=== PATIENT | female | born 1990 | race Caucasian/White ===

== ENCOUNTER 2024-06-03 07:57 | Inpatient (IN) ==
[2024-06-03] MEDS ORDERED: ACETAMINOPHEN 500 MG TAB PO PRN (08:39)
[2024-06-03] MEDS ORDERED: LIDOCAINE 1% LOCAL 20 ML VIAL INFIL PRN (08:39)
[2024-06-03] MEDS ORDERED: OXYTOCIN 30 UNITS/NSS 30 UNITS/500 ML BAG IV PRN (08:39)
[2024-06-03] MEDS ORDERED: CALCIUM CARBONATE 500 MG CHEWABLE TAB PO PRN (08:39)
--- NOTE | 2024-06-03 08:41 | History & Physical Report ---
Date of Service June 03, 2024 Assessment & Plan (1) Supervision of elderly primigravida: (2) Post-dates : Plan Sulma is a 34-year-old G3, P1 currently at 41 weeks 2 days gestational age presents for induction of labor for late term 1. Fetus: Category 1 tracing 2. Labor: Cervical ripening Soria placed. Will start oxytocin per regular protocol and will plan for rupture of membranes post Soria. 3. Vitals within normal limits 4. GBS negative Admission and Anticipated Discharge Date Admission Date: June 03, 2024 History of Present Illness Primary Care Provider: [facility] Sulma is a 34-year-old currently at 41 weeks 2 days gestational age presents for induction of labor for late term . complicated by advanced maternal age but is otherwise been normal. OB Labs: Blood Type A Positive 10/16/23 Antibody Screen NEGATIVE 10/16/23 Hgb 11.8 g/dl (12.0-16.0) L 03/04/24 Hct 35.3 % (37.0-47.0) L 03/04/24 MCV 85.6 fL (80.0-100.0) 10/16/23 Plt Count 260 K/uL (130-400) 10/16/23 Rubella IgG Antibody Immune (Immune) 10/16/23 RPR Nonreactive (Nonreactive) 10/16/23 Treponema pallidum Ab Negative (Negative) 03/04/24 Hep Bs Antigen NON-REACTIVE (NON-REACTIVE) 10/16/23 Hepatitis C Ab (EIA) NON-REACTIVE (NON-REACTIVE) 10/16/23 HIV (1&2) Ag & Ab Conf NON-REACTIVE (NON-REACTIVE) 10/16/23 Glucose 1 Hr 50 gm 99 mg/dl (70-130) 03/04/24 OB Optional Labs: Chlamydia trachomatis RNA Not Detected (NotDetected) 10/16/23 Neisseria gonorrhoeae RNA Not Detected (NotDetected) 10/16/23 Labs Reviewed: 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, FOB neg declines afp--akh Allergies Allergy/AdvReac Type Severity Reaction Status Date / Time No Known Allergies Allergy Verified 06/03/24 08:57 Home Medications Medication Instructions Recorded Confirmed Type aspirin 81 mg chewable tablet 81 mg PO DAILY 06/03/24 06/03/24 History vits no.124-ferrous fum 1 tab PO DAILY 06/03/24 06/03/24 History 27 mg iron-folic acid 800 mcg tablet ( Vitamin) Patient History Surgical History S/P wisdom tooth extraction S/P breast biopsy Family History (Updated 10/09/23 @ 09:50 by Yola Alfaro) Grandfather (Paternal) Diabetes Social History (Updated 10/09/23 @ 09:50 by Yola Alfaro) Smoking Status: Former smoker Do You Dip or Chew Tobacco: No; Hx Alcohol Use: No Hx Substance Use: No Beliefs That Will Affect Care: None marital status: marital status details: Dylan (34) [phone] Current Living Situation: Spouse Current Living Situation Comment: lives with spouse, 1 dog. current occupational status: employed current occupation: Grad student Other Information That Helps Us Care for You: No Feels Safe at Home: Yes Safety Concerns: Feels Safe At This Time Assistive Devices: None Physical Exam Genitourinary: normal external appearance Manual OB Exam: + cervical dilation 1 cm, + cervical effacement 50% and + station high OB Exam Monitor Tracing: + external FHT monitor used, + external uterine monitor used, + category I and + normal FHT variability; no early decelerations present, no late decelerations present and no variable decelerations Results & Data Vital Signs (Past 12 Hours) Vital Signs Temp Pulse Resp BP 06/03/24 08:11 85 110/65 06/03/24 08:06 36.8 C 20 Coding Level of Care Code None Diagnoses Encounter for supervision of primigravida of advanced maternal age in third trimester O09.513 Trimester: third trimester Post-term , 40-42 weeks of gestation O48.0 Post-term type: 40-42 weeks gestation (1) Supervision of elderly primigravida Trimester: third trimester Qualified Code(s): O09.513 - Supervision of elderly primigravida, third trimester (2) Post-dates Post-term type: 40-42 weeks gestation Qualified Code(s): O48.0 - Post-term
[2024-06-03 09:07] LABS: Hematocrit (blood only) 35.5 % (37.0-47.0); Hemoglobin 11.9 g/dl (12.0-16.0); Mean Corpuscular Hgb Conc 33.5 g/dL (32.0-36.0); Mean Corpuscular Volume 86.6 fL (80.0-100.0); Mean Platelet Volume 10.9 fL (9.4-12.4); Platelet Count 182 K/uL (130-400); RDW Coefficient of Variation 14.3 % (11.5-14.5); RDW Standard Deviation 45.1 fL (36.4-46.3); White Blood Count 10.49 K/ul (4.8-10.8)
[2024-06-03] MEDS: LACTATED RINGER'S 1,000 ML IV SCH (09:36)
[2024-06-03] MEDS: OXYTOCIN 30 UNITS/NSS 30 UNITS/500 ML BAG IV PRN (09:40)
[2024-06-03] MEDS ORDERED: ePHEDrine sulfate 50 MG/ML AMP ONE (17:22)
--- NOTE | 2024-06-03 17:40 | Anesthesiology Consultation ---
Date of Service June 03, 2024 Assessment & Plan ASA ASA2 Proposed Anesthesia Anesthesia Type: Labor Epidural Risk / Benefits Reviewed With: PT / POA / Parent / Guardian, Accepts Plan and Informed Consent Obtained History Height/Weight Height: 5 ft 11 in Weight: 113.398 kg Allergies Allergy/AdvReac Type Severity Reaction Status Date / Time No Known Allergies Allergy Verified 06/03/24 08:57 Medications Home Medications Medication Instructions Recorded Confirmed Last Taken aspirin 81 mg chewable tablet 81 mg PO DAILY 06/03/24 06/03/24 Unknown vits no.124-ferrous fum 1 tab PO DAILY 06/03/24 06/03/24 Unknown 27 mg iron-folic acid 800 mcg tablet ( Vitamin) Active Medications Generic Name Dose Route Start Last Admin Trade Name Pamela PRN Reason Stop Dose Admin Lactated Ringer's 1,000 mls @ 125 mls/hr 06/03/24 09:00 06/03/24 17:55 Lr IV 06/04/24 08:59 Infused .Q8H MIGUELANGEL Infusion Oxytocin 30 units in 500 mls @ 0 mls/hr 06/03/24 08:41 06/03/24 17:13 Pitocin 30 Units/Nss IV 06/05/24 08:40 0 units/hr .Q0M PRN 0 mls/hr Labor Induction/Augmentation Titration Protocol 0 UNITS/HR Exercise / Class Metabolic Activity II 4-5 Yardwork/Stairs/Walk up hill Past Family History Family History Grandfather (Paternal) Diabetes Past Surgical History Surgical History S/P wisdom tooth extraction S/P breast biopsy Past Anesthesia History No Hx of Anesthesia Complications and No Family Hx of Anesthesia Complications History of PONV No Hx of PONV and No Hx of Motion Sickness Social History Smoking Status: Former smoker Do You Dip or Chew Tobacco: No Hx Alcohol Use: No Hx Substance Use: No substance use type: does not use Review of Systems denies fever/cough/ colds/ chest pain/ SOB/ YARITZA denies YARITZA Physical Exam Vital Signs Last Vital Signs Temp 36.7 C 06/03/24 18:06 Pulse 83 06/03/24 18:29 Resp 18 06/03/24 18:06 BP 105/54 L 06/03/24 18:21 Pulse Ox 96 06/03/24 18:29 ENMT Mouth: no TMJ abnormality and no dentition abnormality Thyromental Distance: > or= 3.5 Finger Breadths Mallampati Class: II Neck neck extension not limited Respiratory normal respiratory effort; no respiratory distress Auscultation: lungs clear to auscultation bilaterally Cardiovascular Rate/Rhythm: regular rate and regular rhythm Neurologic moves all extremities Psychiatric Orientation: alert and oriented x 3 Testing Laboratory Results 06/03/24 08:46
[2024-06-03] MEDS ORDERED: ePHEDrine sulfate 50 MG/ML AMP IV PRN (17:41)
[2024-06-03] MEDS ORDERED: BUPIVACAINE 0.25% PF 30 ML VIAL EPI PRN (17:41)
[2024-06-03] MEDS ORDERED: NALOXONE HCL 1 MG in SODIUM CHLORIDE 0.9% 1,000 ML IV PRN (17:41)
[2024-06-03] MEDS ORDERED: ROPIVACAINE 0.5% PF 5 MG/ML 20 ML VIAL EPI PRN (17:41)
[2024-06-03] MEDS ORDERED: fentaNYL citrate PF 100 MCG/2 ML VIAL EPI PRN (17:41)
[2024-06-03] MEDS ORDERED: LIDOCAINE 2% MPF LOCAL 5 ML VIAL EPI PRN (17:41)
[2024-06-03] MEDS ORDERED: NALOXONE HCL 0.4 MG/1 ML VIAL/CARP IV PRN (17:41)
[2024-06-03] MEDS ORDERED: NALBUPHINE HCL INJ 10 MG/ML AMP IV PRN (17:41)
[2024-06-03] MEDS ORDERED: SODIUM CHLORIDE 0.9% PF INJ 10 ML VIAL EPI PRN (17:41)
[2024-06-03] MEDS ORDERED: diphenhydrAMINE 50 MG/ML VIAL IV PRN (17:41)
[2024-06-03] MEDS ORDERED: ONDANSETRON INJ 2 MG/ML 2 ML VIAL IV PRN (17:41)
[2024-06-03] MEDS: fentANYL 2 MCG/ML BUPIVacaine 0.125%-NSS 100ML BAG ONE (18:09)
[2024-06-03] MEDS: fentaNYL citrate PF 100 MCG/2 ML VIAL ONE (18:16)
[2024-06-03] MEDS: LIDOCAINE 2%/EPINEPHRINE 1:200,000 20 ML PF ONE (18:17)
[2024-06-03] MEDS: BUPIVACAINE 0.25% PF 30 ML VIAL ONE (18:17)
[2024-06-03] MEDS: SODIUM CHLORIDE 0.9% PF INJ 10 ML VIAL ONE (19:04)
[2024-06-03] MEDS: BUPIVACAINE 0.25% PF 30 ML VIAL EPI STA (19:06)
[2024-06-03] MEDS: LIDOCAINE 2%/EPINEPHRINE 1:200,000 20 ML PF EPI STA (19:06)
[2024-06-03] MEDS: SODIUM CHLORIDE 0.9% PF INJ 10 ML VIAL EPI STA (19:06)
[2024-06-03] MEDS: fentaNYL citrate PF 100 MCG/2 ML VIAL EPI STA (19:06)
[2024-06-04] MEDS: fentANYL 2 MCG/ML BUPIVacaine 0.125%-NSS 100ML BAG EPI PRN (00:56)
[2024-06-04] MEDS ORDERED: OXYTOCIN 30 UNITS/NSS 30 UNITS/500 ML BAG IV PRN (07:14)
[2024-06-04] MEDS ORDERED: HYDROCORTISONE ACETATE 25 MG SUPP PR PRN (07:14)
[2024-06-04] MEDS ORDERED: ACETAMINOPHEN 325 MG TAB PO PRN (07:14)
[2024-06-04] MEDS ORDERED: bisacodyL 10 MG SUPP PR PRN (07:14)
--- NOTE | 2024-06-04 07:14 | Delivery Summary ---
Vaginal Delivery Summary Date of Service June 04, 2024 Vaginal Delivery Summary VAVD and 2nd Degree LAC Patient pushed for approximately 3 hours at which time the was noted to be at +2 station at rest and +3 station with pushing. I discussed option for a vacuum-assisted delivery due to prolonged pushing and maternal exhaustion. I discussed the risks of a vacuum delivery including scalp lacerations, hematomas, risk of shoulder dystocia and perineal lacerations. Patient verbally consented to the vacuum and all questions related to the vacuum were answered to the patient's satisfaction. The vacuum was applied 2 cm anterior to the posterior fontanelle. It was insufflated to within the green zone and traction was applied over 2 pushes which brought the head to full . Care was taken to not apply more tension than recommended based on the indicator on the Kiwi. The vacuum was then removed and at the next contraction patient delivered the head. Delivery of the anterior shoulder was initiated but a shoulder cannot be distinctly felt above the pubic bone. As the patient to push and then shoulder was still not distinctly noted. I felt up anteriorly around the pubic bone and the anterior shoulder was not distinctly felt. After another attempt of pushing it was discovered that the arm was compound with the hand wrapped around the baby's head pulling the shoulder anteriorly. The hand was grasped and delivered and remainder of shoulders and body quickly followed. placed on maternal abdomen and cord was double clamped and cut. There was some spontaneous cry's and good tone. was taken to the nursery staff for evaluation with Apgars of 6 and 8 at 1 and 5 minutes respectively. Attention was turned deliver the placenta was delivered intact three-vessel cord. Uterine massage was initiated and bleeding was noted to be within expectation. Inspection of perineum vagina and cervix noted a right labial laceration was repaired with 3-0 Vicryl continuous running stitch. There is also noted to be second-degree perineal laceration which was repaired with 3-0 Vicryl traditional crown stitch. Needle sponge and instrument counts were correct at the completion of the case. Both mother and stable in the po st delivery timeframe. No complications noted and blood loss per QBL [facility] Vaginal Delivery Charge Delivery Type Details: VAVD and 2nd Degree LAC
--- NOTE | 2024-06-04 07:40 | Anesthesia Procedure Note ---
Date of Service June 04, 2024 Anesthesia Post Epidural Note Vital Signs Vital Signs: Temp Pulse Resp BP Pulse Ox 37.0 C 97 H 18 132/63 98 06/04/24 05:30 06/04/24 07:25 06/04/24 05:30 06/04/24 07:25 06/04/24 07:01 Pain Intensity Lower Abdomen: Pain Intensity: 6 Notes Mental Status: alert / awake / arousable and participated in evaluation Nausea / Vomiting: adequately controlled Pain: adequately controlled Airway Patency, RR, SpO2: stable & adequate BP & HR: stable & adequate Hydration State: stable & adequate Neuraxial Anesthesia: was administered and sensory block is resolving Anesthetic Complications: no major complications apparent Epidural: Removed without complications and With tip intact
[2024-06-04] MEDS: FERROUS SULFATE 325 MG TAB PO SCH (09:59)
[2024-06-04] MEDS: PRENATAL VITAMIN 1 TAB PO SCH (09:59)
[2024-06-04] MEDS: BENZOCAINE 20% SPRY 85 APPLN/85 GM CAN EXT PRN (09:59)
[2024-06-04] MEDS: DOCUSATE SODIUM 100 MG CAP PO SCH (09:59)
[2024-06-04] MEDS: IBUPROFEN 600 MG TAB PO PRN (16:40)
[2024-06-05 03:46] VITALS: O2SAT 99
[2024-06-05 06:37] LABS: Hematocrit (blood only) 31.5 % (37.0-47.0); Hemoglobin 10.3 g/dl (12.0-16.0)
--- NOTE | 2024-06-05 08:28 | Obstetrical Progress Note ---
Date of Service June 05, 2024 Assessment & Plan (1) Encounter for care and examination after delivery: 34 yo PP1 from VAVD, doing well -Meeting all pp milestones -A+/rubella immune/ -f/u 6 weeks for appt, desires dc Subjective Ambulation: ambulating normally Voiding: no voiding problems Passing Gas:: Yes Diet Tolerance:: regular diet Lochia:: Small Feeding Type:: breast feeding Pain well managed with medication Review of Systems Denies fevers, chills, n/v, HENRY, CP, SOB Physical Exam Constitutional WD/WN, vitals as above no acute distress Respiratory normal respiratory effort, lungs clear to auscultation Cardiovascular RRR, no murmur, no edema Gastrointestinal (Abdomen) Percussion/Palpation: abdomen soft; abdomen nontender fundus firm at umbilicus and NT Musculoskeletal BLE symmetric, nonerythematous, nontender Results & Data Vital Signs (Past 12 Hours) Vital Signs Temp Pulse Pulse Resp BP Pulse Ox O2 Del Method 06/05/24 03:51 81 104/69 06/05/24 03:44 80 83/48 L 06/05/24 03:43 97.9 F 80 16 85/47 L 99 Room Air 06/05/24 00:07 97.9 F 84 16 104/68 06/04/24 21:34 97.7 F 83 16 103/63 97 Room Air
[2024-06-05 09:32] VITALS: RESP 18
[2024-06-05] MEDS: DIPHTHER/TETAN/PERTUS Vaccine (Tdap, Adol/Adult) 0.5mL IM ONE (14:59)
[2024-06-05 17:07] VITALS: BP 109/73; PULSE 90; TEMP 98.6
[2024-06-05] MEDS ORDERED: bisacodyL 5 MG TABEC PO SCH (20:00)
== END 2024-06-05 18:20 | disposition home or self-care (01) | DRG 807 ==
LOC: 4S1 07:57 → 4E2 06-04 10:03
DX: Z37.0 Single live birth; O70.1 Second degree perineal laceration during delivery; Z3A.41 41 weeks gestation of pregnancy; O48.0 Post-term pregnancy

== ENCOUNTER 2025-07-25 09:52 | Inpatient (IN) ==
--- NOTE | 2025-07-25 09:58 | Emergency Department Note ---
Impression & Plan Closed left tibial fracture, Closed fracture of left fibula ED Provider Note CHIEF COMPLAINT: Left ankle injury HISTORY OF PRESENTING ILLNESS: This 35-year-old female patient presents to the emergency department via ambulance for evaluation of a left ankle injury. The patient states that she stepped on black ice and her left ankle rolled and she felt 3 pops as she went down. She did not hit her head. She denies loss of consciousness and she is not on blood thinners. The patient denies any other injury other than the left lower leg and foot. No previous fractures to this ankle or foot. She denies neck or back pain. Denies chest pain, shortness of breath, abdominal pain, nausea, or vomiting. She had eggs, toast, and coffee around 7:30 am. She received 200 mcg of Fentanyl IV in the ambulance for her pain. REVIEW OF SYSTEMS: See HPI for pertinent positives and pertinent negatives. ALLERGIES: Cipro, bees MEDICATIONS: None PAST MEDICAL HISTORY: Denies pertinent past medical or pertinent past surgical history PHYSICAL EXAM: VITALS: Vitals are noted on the nurse's note and reviewed by myself. GENERAL: No acute distress, non-diaphoretic. SKIN: The skin was without obvious lacerations or abrasions. Capillary reflex less than 2 seconds. HEAD: Normocephalic. No scalp tenderness or step-offs felt. EYES: Pupils equal round and reactive to light and accommodation. Conjunctivae without injection, sclerae without icterus. Extraocular movements intact. No nystagmus. NECK: Supple without nuchal rigidity. Cervical spine is nontender. Full range of motion of the neck without tenderness. HEART: Regular rate and rhythm without murmurs gallops or rubs. LUNGS: Clear to auscultation bilaterally without wheezes, rales or rhonchi. No retractions or accessory muscle use. CHEST: No chest wall tenderness. ABDOMEN: Positive bowel sounds x 4. Normal tympanic percussion. Soft, nontender, without masses or organomegaly. No guarding or rebound tenderness. MUSCULOSKELETAL: No tenderness of the thoracic or lumbar spine. The patient has an obvious deformity of the distal aspect of the left tib-fib, but it does not appear to involve the ankle joint on exam. The patient is maximally tender to palpation in this area. She is also mildly tender to palpation over the lateral and medial malleolus of the left ankle and diffusely over the left foot. No tenderness to palpation of the left knee, femur, or hip. She still has normal sensation to light and sharp touch of the left lower extremity. Dorsalis pedis and posterior tibial pulses 2+. Full range of motion without tenderness to palpation in all remaining extremities. Peripheral pulses 2+. NEURO: Patient was alert and oriented to person place and time. Normal mental status exam. Normal sensation to light and sharp touch. No focal neurological deficits. DIFFERENTIAL DIAGNOSIS: Differential diagnosis includes fracture, subluxation, dislocation, contusion, ligamentous injury, neurovascular, compartment syndrome, rhabdomyolysis, as well as other pathologies. ED COURSE AND MEDICAL DECISION MAKING: MEDICATIONS GIVEN: The patient had received 200 mcg of fentanyl IV by EMS prior to arrival. She was given 1 L normal saline solution bolus. She was given morphine 4 mg IV, Zofran 4 mg IV, and Dilaudid 0.25 mg IV x 2 for additional pain control. Maintenance fluids were started at 125 mL an hour. INTERPRETATION OF LABS: I interpreted the labs with full lab results as below in the lab section of this note. Laboratory results pertinent to the emergent complaint are discussed in the MDM section below. The patient was advised to follow up with their PCP and/or specialist(s) for further outpatient monitoring and management of any abnormal results. INTERPRETATION OF IMAGING: Imaging studies were interpreted by myself and read by radiology as per the imaging section of this note. The patient was advised to follow up with their PCP and/or specialist(s) for further outpatient management of any non-emergent abnormal findings. CONSULTATIONS: Dr. Sandy of orthopedics SPLINTING: The patient was placed in a long-leg posterior and stirrup splint under my direction. Neurovascular status was rechecked and intact. MDM SUMMARY: I examined the patient. The patient slipped on black ice rolling her left ankle. She heard 3 pops that she went down. Now having significant pain in the left lower leg and foot. She did not hit her head and there was no loss of consciousness and she is not on blood thinners. She denies any other injury or pain and no other tenderness to palpation on exam. The patient last ate and drank at 7:30 AM. An IV lock was already placed by EMS and she had been given fentanyl 200 mcg IV by EMS prior to arrival. White blood cell count elevated at 15.33 which is likely secondary to pain/stress response. Hemoglobin normal at 12.1. Platelet count normal at 239. Calcium low at 7.9 and chloride 110, but BMP otherwise without concerning abnormalities. Serum negative. X-rays of the left tib-fib show an acute oblique mildly comminuted mildly displaced fracture at the distal shaft of the tibia and fibula. X-rays of the left foot show no acute fracture or dislocation. I spoke with Dr. Sandy of orthopedics who will plan to take the patient to the OR for definitive treatment of her fractures. He requested the patient be placed in a posterior long-leg splint prior to having a CT scan of the left tib- fib performed for better visualization for surgical plan. The patient was placed in the posterior long-leg and stirrup splint. CT scan of the left tib-fib without contrast showed better visualization of the acute distal tibia and fibular shaft fractures with no intra-articular extension. Dr. Sandy took the patient to the OR for definitive treatment of the fractures. Please refer to his dictation for further details. The patient's care was transferred in stable condition. DIAGNOSIS: Closed fracture of the left tibia Closed fracture of the left fibula Past Med/Surg History Problem List (Updated 07/25/25 @ 15:[address] PA-C) Closed fracture of left fibula (Acute) Closed left tibial fracture (Acute) Encounter for care and examination after delivery Post-dates Mass of right breast benign fibroadenoma Encounter for anatomic survey Supervision of elderly primigravida Medical History (Updated 07/25/25 @ 15:[address] PA-C) Encounter for pre-operative examination Fracture of tibial shaft, left, closed Surgical History S/P wisdom tooth extraction S/P breast biopsy Family History Grandfather (Paternal) Diabetes Grandmother (Paternal) Breast cancer Mother No problems noted. Social History Smoking Status: Former smoker Tobacco Type: Declines Age Started Using Tobacco: 16; Age Quit Using Tobacco: 33; Do You Dip or Chew Tobacco: No; Hx Alcohol Use: No Hx Substance Use: No Preferred Language: Zimbabwean Beliefs That Will Affect Care: None marital status: marital status details: Dylan (34) [phone] Current Living Situation: Spouse Current Living Situation Comment: lives with spouse, 1 dog. current occupational status: employed current occupation: Grad student How many Children do You have: 1 Feels Safe at Home: Yes Childhood Exposure to Second-Hand Smoke: Yes Diet: regular caffeine: Yes Dental Care, Regularly: Yes Physical Activity Frequency: Daily Seatbelt Use: always Sunscreen Use: Yes Assistive Devices: None Allergies Allergies Allergy/AdvReac Type Severity Reaction Status Date / Time bee venom protein (honey bee) Allergy Verified 03/21/25 08:54 ciprofloxacin [From Cipro] AdvReac Hives Verified 03/21/25 08:54 Results & Data (ED) Vital Signs Vital Signs - 24 hr 07/25/25 09:59 07/25/25 09:59 07/25/25 11:55 Temperature 36.9 C 36.9 C Temperature Source Oral Oral Pulse Rate 103 H Pulse Rate [Left Finger] Pulse Rate [Right Finger] 103 H 92 H Pulse Rhythm [Left Finger] Pulse Rhythm [Right Finger] Regular Pulse Strength [Left Finger] Pulse Strength [Right Finger] Normal Respiratory Rate 17 17 17 Respiratory Effort / Characteristics Non-Labored Spontaneous Non-Labored Spontaneous Non-Labored Spontaneous Respiratory Depth Normal Normal Normal Respiratory Pattern Regular Blood Pressure 121/87 Blood Pressure [Right Arm] 121/87 130/87 Blood Pressure Mean 98 Blood Pressure Mean [Right Arm] 98 101 Blood Pressure Position Sitting Blood Pressure Position [Right Arm] Sitting Sitting Pulse Oximetry 99 99 92 Oxygen Delivery Method Room Air Room Air Room Air Sepsis Recent Fever Within 48 Hours No Sepsis New/Unexplained Change in Mental Status N/A Sepsis Action Taken by Nursing No Action Required 07/25/25 13:55 07/25/25 14:55 07/25/25 15:04 Temperature 37.1 C Temperature Source Oral Pulse Rate 76 Pulse Rate [Left Finger] 82 Pulse Rate [Right Finger] 79 Pulse Rhythm [Left Finger] Regular Pulse Rhythm [Right Finger] Regular Pulse Strength [Left Finger] Normal Pulse Strength [Right Finger] Normal Respiratory Rate 17 17 18 Respiratory Effort / Characteristics Non-Labored Spontaneous Non-Labored Spontaneous Respiratory Depth Normal Normal Respiratory Pattern Regular Blood Pressure 120/90 Blood Pressure [Right Arm] 125/86 123/80 Blood Pressure Mean Blood Pressure Mean [Right Arm] 99 94 Blood Pressure Position Blood Pressure Position [Right Arm] Semi-fowlers Lying Pulse Oximetry 98 96 97 Oxygen Delivery Method Room Air Room Air Room Air Sepsis Recent Fever Within 48 Hours Sepsis New/Unexplained Change in Mental Status Sepsis Action Taken by Nursing Laboratory Data 07/25/25 12:14 07/25/25 12:14 Lab Results 07/25/25 07/25/25 Range/Units 12:14 14:25 WBC 15.33 H (4.8-10.8) K/ul RBC 4.10 L (4.20-5.40) M/uL Hgb 12.1 (12.0-16.0) g/dL Hct 35.7 L (37.0-47.0) % MCV 87.1 (80.0-100.0) fL MCH 29.5 (25.0-34.0) pg MCHC 33.9 (32.0-36.0) g/dL RDW Std Deviation 40.7 (36.4-46.3) fL RDW Coeff of Jaleel 12.7 (11.5-14.5) % Plt Count 239 (130-400) K/uL MPV 10.7 (9.4-12.4) fL Immature Gran % (Auto) 0.3 % Neut % (Auto) 87.3 % Lymph % (Auto) 7.8 % [place] % (Auto) 3.8 % Eos % (Auto) 0.5 % Baso % (Auto) 0.3 % Neut # (Auto) 13.38 H (1.40-6.50) K/uL Lymph # (Auto) 1.19 L (1.20-3.40) K/uL [place] # (Auto) 0.59 (0.11-0.59) K/uL Eos # (Auto) 0.07 (0.00-0.50) K/uL Baso # (Auto) 0.05 (0.00-0.20) K/uL Immature Gran # (Auto) 0.05 (0.01-0.20) K/uL Sodium 138 (136-145) mmol/L Potassium 3.7 (3.5-5.1) mmol/L Chloride 110 H (98-107) mmol/L Carbon Dioxide 23 (21-32) mmol/L Anion Gap 5 (3-11) BUN 19 (6-23) mg/dl Creatinine 0.57 L (0.6-1.2) mg/dl Est Cr Clr Drug Dosing 173.1 ml/min eGFR 119.96 BUN/Creatinine Ratio 33.3 H (10-20) Glucose 98 (70-99(Fasting)) mg/dl Calcium 7.9 L (8.6-10.3) mg/dl HCG, Qual Negative (Negative) Administered Medications Discontinued Medications Hydromorphone HCl (Hydromorphone Inj 0.5 Mg/0.5 Ml Syr) 0.25 mg IV NOW STA Stop: 07/25/25 11:58 Last Admin: 07/25/25 12:45 Dose: 0.25 mg Documented By: JOHN PAUL Hydromorphone HCl (Hydromorphone Inj 0.5 Mg/0.5 Ml Syr) 0.25 mg IV NOW STA Stop: 07/25/25 13:47 Last Admin: 07/25/25 13:47 Dose: 0.25 mg Documented By: ARIAN Sodium Chloride (Nss) 1,000 mls @ 999 mls/hr IV .Q1H1M ONE Stop: 07/25/25 11:01 Last Admin: 07/25/25 10:18 Dose: 999 mls/hr Documented By: JOHN PAUL Sodium Chloride (Nss) 500 mls @ 125 mls/hr IV .Q4H MIGUELANGEL Stop: 07/25/25 17:14 Last Admin: 07/25/25 13:38 Dose: 125 mls/hr Documented By: ARIAN Cefazolin Sodium (Ancef 2000mg) 2,000 mg in 15 mls @ 3.75 mls/min IV PREOP ONE; Protocol Stop: 07/25/25 15:15 Last Admin: 07/25/25 15:28 Dose: 3.75 mls/min Documented By: [id number] Morphine Sulfate (Morphine Sulfate 4 Mg/Ml 1 Ml Carp\Vial) 4 mg IV NOW STA Stop: 07/25/25 10:56 Last Admin: 07/25/25 11:05 Dose: 4 mg Documented By: JOHN PAUL Ondansetron HCl (Ondansetron Inj 2 Mg/Ml 2 Ml Vial) 4 mg IV NOW STA Stop: 07/25/25 10:56 Last Admin: 07/25/25 11:05 Dose: 4 mg Documented By: AMS Imaging Data Radiologist's Impression: Foot X-Ray 07/25/25 10:01 XR foot LT 2V CLINICAL HISTORY: injury COMPARISON: None FINDINGS: No fracture or dislocation seen of the left foot. IMPRESSION: No fracture seen of the left foot. ACT 112: Negative or not required by law. Electronically signed by: Taye Prince M.D. 07/25/2025 11:40 AM Tibia/Fibula X-Ray 07/25/25 10:01 XR tibia fibula LT 2V CLINICAL HISTORY: injury COMPARISON: None FINDINGS: There are acute oblique mildly comminuted mildly displaced fractures at the distal shafts of the tibia and fibula. No other fracture or dislocation seen at the left tibia or fibula. IMPRESSION: Acute fractures distal shafts of the tibia and fibula. ACT 112: Negative or not required by law. Electronically signed by: Taye Prince M.D. 07/25/2025 11:[address] 07/25/25 11:55 CT tib/fib LT wo con CLINICAL HISTORY: Eval fracture morphology further COMPARISON STUDY: X-ray earlier today FINDINGS: There is an oblique mildly comminuted fracture at the distal shaft of the tibia with one half shaft width posterior displacement. There is an acute mildly comminuted minimally displaced fracture at the distal shaft of the fibula. Small fracture fragment extends into the interosseous space from the medial aspect of the fibula. No other fracture or dislocation seen at the right tibia or fibula. No fracture seen at the talus, calcaneus, or visualized midfoot. No significant soft tissue hematoma seen. IMPRESSION: Acute distal tibia and fibula shaft fractures. ACT 112: Negative or not required by law. Electronically signed by: Taye Prince M.D. 07/25/2025 1:37 PM Discharge Plan Visit Data Chief Complaint: Fall Stated Complaint: FALL, ANKLE INJURY ED Provider: [facility] ED Midlevel Provider: Pam Lane. Discharge Problem: Closed left tibial fracture, Closed fracture of left fibula Patient Disposition: Admitted As Inpatient Condition: Fair Discharge Instructions Interventions: ED Discharge Assessment Last Done: 07/25/25 14:55 Discharge Problem: Closed left tibial fracture Qualifiers: Encounter type: initial encounter Closed fracture of left fibula Qualifiers: Encounter type: initial encounter
[2025-07-25] MEDS: SODIUM CHLORIDE 0.9% 1,000 ML IV ONE (10:18)
[2025-07-25] MEDS: MoRPHine SULFATE 4 MG/ML 1 ML CARP\\VIAL IV STA (11:05)
[2025-07-25] MEDS: ONDANSETRON INJ 2 MG/ML 2 ML VIAL IV STA (11:05)
--- NOTE | 2025-07-25 11:40 | XRay Report ---
XR tibia fibula LT 2V CLINICAL HISTORY: injury COMPARISON: None FINDINGS: There are acute oblique mildly comminuted mildly displaced fractures at the distal shafts of the tibia and fibula. No other fracture or dislocation seen at the left tibia or fibula. IMPRESSION: Acute fractures distal shafts of the tibia and fibula. ACT 112: Negative or not required by law. Electronically signed by: Taye Prince M.D. 07/25/2025 11:39 AM
--- NOTE | 2025-07-25 11:41 | XRay Report ---
XR foot LT 2V CLINICAL HISTORY: injury COMPARISON: None FINDINGS: No fracture or dislocation seen of the left foot. IMPRESSION: No fracture seen of the left foot. ACT 112: Negative or not required by law. Electronically signed by: Taye Prince M.D. 07/25/2025 11:40 AM
[2025-07-25 12:42] LABS: Hematocrit (blood only) 35.7 % (37.0-47.0); Hemoglobin 12.1 g/dL (12.0-16.0); Immature Granulocytes # (auto) 0.05 K/uL (0.01-0.20); Immature Granulocytes % (auto) 0.3 %; Mean Corpuscular Hemoglobin 29.5 pg (25.0-34.0); Mean Corpuscular Volume 87.1 fL (80.0-100.0); Platelet Count 239 K/uL (130-400); RDW Standard Deviation 40.7 fL (36.4-46.3); Red Blood Count 4.10 M/uL (4.20-5.40); White Blood Count 15.33 K/ul (4.8-10.8)
[2025-07-25] MEDS: HYDROmorphone INJ 0.5 MG/0.5 ML SYR IV STA ×2 (12:45→13:47)
[2025-07-25 12:54] LABS: Anion Gap 5.0 (3-11); Blood Urea Nitrogen 19.0 mg/dl (6-23); Calcium 7.9 mg/dl (8.6-10.3); Carbon Dioxide 23.0 mmol/L (21-32); Chloride 110.0 mmol/L (98-107); Creatinine Clr Calc Pharmacy 173.1 ml/min; Glucose 98.0 mg/dl (70-99(Fasting)); Potassium 3.7 mmol/L (3.5-5.1); Sodium 138.0 mmol/L (136-145)
[2025-07-25] MEDS: SODIUM CHLORIDE 0.9% 500 ML IV SCH (13:38)
--- NOTE | 2025-07-25 13:38 | CT Scan Report ---
CT tib/fib LT wo con CLINICAL HISTORY: Eval fracture morphology further COMPARISON STUDY: X-ray earlier today FINDINGS: There is an oblique mildly comminuted fracture at the distal shaft of the tibia with one hendrickson lf shaft width posterior displacement. There is an acute mildly comminuted minimally displaced fractu re at the distal shaft of the fibula. Small fracture fragment extends into the interosseous space fro m the medial aspect of the fibula. No other fracture or dislocation seen at the right tibia or fibula . No fracture seen at the talus, calcaneus, or visualized midfoot. No significant soft tissue hematom a seen. IMPRESSION: Acute distal tibia and fibula shaft fractures. ACT 112: Negative or not required by law. Electronically signed by: Taye Prince M.D. 07/25/2025 1:37 PM
--- NOTE | 2025-07-25 14:09 | Orthopedic Consultation ---
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 During the fall she sustained a closed, traumatic, displaced comminuted fracture of her left tibia and fibular shafts. We did obtain a CT scan demonstrating no intra-articular extension. I had a long discussion with the patient regarding the nature of this injury. We discussed in great detail the pathoanatomy, pathophysiology and treatment options. I expressed to the patient that a tibial shaft fracture such as this is 1 for which I would recommend surgical management. I discussed with her that surgery would include open versus close reduction and internal fixation of the left tibia. We discussed the risks of the proposed surgery which include but are not limited to loss of life/limb, DVT/PE, incomplete relief of pain, need for additional surgery, infection, nonunion, malunion, hardware complication, hardware failure, hardware irritation. We discussed the alternatives which would be for nonoperative management. Nonoperative management would include serial casting and likely a longer period of time to be nonweightbearing. Nonoperative management carries with it a higher risk of nonunion and malunion. After thorough discussion of the risks, benefits, alternatives to surgical management, the patient is interested in pursuing operative care. She last ate a full breakfast this morning at 730. Will discuss with anesthesia and take the patient to the operating room as soon as an OR is available and anesthesia deems the patient safe. Postoperatively, the patient will be started on Lovenox for DVT prophylaxis. We have obtained vitamin D labs to begin repletion if necessary. Given the comminuted nature of this fracture, the patient will require period of time being nonweightbearing even postoperatively. I did discuss with her the potential for her to be discharged to a rehab facility. All of her questions were answered to her satisfaction. History of Present Illness Reason for Consultation: Left leg pain History of Present Illness 35-year-old female patient presents to the emergency department via ambulance for evaluation of a left leg injury. The patient states that she stepped on black ice and her left ankle rolled and she felt 3 pops as she went down. She did not hit her head. She denies loss of consciousness and she is not on blood thinners. The patient denies any other injury other additional areas of pain. No previous orthopedic history. She denies neck or back pain. Denies chest pain, shortness of breath, abdominal pain, nausea, or vomiting. She had eggs, toast, and coffee around 7:30 am. She received 200 mcg of Fentanyl IV in the ambulance for her pain. Patient is resting comfortably in her splint in the emergency department. She denies any additional areas of pain besides her left leg. She reports that she works as a student records specialist and she also takes care of her daughter. She lives at home with her . No antecedent pain. She is a former smoker. Has been quit for about 2 years. Allergies Allergy/AdvReac Type Severity Reaction Status Date / Time bee venom protein (honey bee) Allergy Verified 03/21/25 08:54 ciprofloxacin [From Cipro] AdvReac Hives Verified 03/21/25 08:54 Patient History Surgical History S/P wisdom tooth extraction S/P breast biopsy Family History (Updated 03/21/25 @ 09:14 by AMAN Poole) Grandfather (Paternal) Diabetes Grandmother (Paternal) Breast cancer Mother No problems noted. Social History Smoking Status: Former smoker Tobacco Type: Declines Age Started Using Tobacco: 16; Age Quit Using Tobacco: 33; Do You Dip or Chew Tobacco: No; Hx Alcohol Use: No Hx Substance Use: No Preferred Language: Kyrgyz Beliefs That Will Affect Care: None marital status: marital status details: Dylan (34) [phone] Current Living Situation: Spouse Current Living Situation Comment: lives with spouse, 1 dog. current occupational status: employed current occupation: Grad student How many Children do You have: 1 Feels Safe at Home: Yes Childhood Exposure to Second-Hand Smoke: Yes Diet: regular caffeine: Yes Dental Care, Regularly: Yes Physical Activity Frequency: Daily Seatbelt Use: always Sunscreen Use: Yes Assistive Devices: None Review of Systems Review of Systems: All systems reviewed & are unremarkable except as noted in HPI & below Physical Exam Physical Exam: On physical examination, the patient is tender to palpation at her mid tibia. She is nontender in her foot. Nontender at the knee. Nontender in the rest of the lower extremity. No open wounds appreciated. Patient's compartments are soft and easily compressible. No pain with range of motion of the toes. Sensation intact to light touch DPN, SPN, sural, saphenous, tibial nerves. Demonstrates active EHL and FHL function foot is warm and well-perfused. Results & Data Vital Signs (Past 12 Hours) Vital Signs Temp Pulse Pulse Resp BP BP Pulse Ox 07/25/25 09:59 36.9 C 103 H 17 121/87 99 07/25/25 09:59 36.9 C 103 H 17 121/87 99 O2 Del Method 07/25/25 09:59 Room Air 07/25/25 09:59 Room Air Diagnostic Findings X-ray of the tibia/fib and CT of the tibia/fib were personally interpreted and reviewed. These demonstrate a comminuted fracture of the distal tibial shaft and fibula without intra-articular extension.
--- NOTE | 2025-07-25 14:23 | Anesthesiology Consultation ---
Date of Service July 25, 2025 Assessment & Plan (1) Encounter for pre-operative examination: Chart Review Chart Review: Acceptable Risk for Surgery and Patient NOT seen in Pre Admission Testing Consults Requested none History Surgery Operation Date: 07/25/25 08:05 Proposed Procedures p Left Tibial Nail - Epi Sandy DO Height/Weight Height: 5 ft 11 in Weight: 96.7 kg Allergies Allergy/AdvReac Type Severity Reaction Status Date / Time bee venom protein (honey bee) Allergy Verified 03/21/25 08:54 ciprofloxacin [From Cipro] AdvReac Hives Verified 03/21/25 08:54 Medications Active Medications Generic Name Dose Route Start Last Admin Trade Name Freq PRN Reason Stop Dose Admin Sodium Chloride 500 mls @ 125 mls/hr 07/25/25 13:15 07/25/25 13:38 Nss IV 07/25/25 17:14 125 mls/hr .Q4H MIGUELANGEL Administration Past Medical History Medical History (Updated 07/25/25 @ 15:[address] PA-C) Encounter for pre-operative examination Fracture of tibial shaft, left, closed Past Family History Family History Grandfather (Paternal) Diabetes Grandmother (Paternal) Breast cancer Mother No problems noted. Past Surgical History Surgical History S/P wisdom tooth extraction S/P breast biopsy Social History Smoking Status: Former smoker Do You Dip or Chew Tobacco: No Hx Alcohol Use: No Hx Substance Use: No substance use type: does not use Physical Exam Vital Signs Last Vital Signs Temp 37.1 C 07/25/25 15:04 Pulse 82 07/25/25 15:04 Resp 18 07/25/25 15:04 BP 123/80 07/25/25 15:04 Pulse Ox 97 07/25/25 15:04 O2 Del Method Room Air 07/25/25 15:04 Testing Laboratory Results 07/25/25 12:14 07/25/25 12:14
[2025-07-25] MEDS ORDERED: ONDANSETRON INJ 2 MG/ML 2 ML VIAL ONE ×2 (14:41→19:23)
[2025-07-25] MEDS ORDERED: DEXAMETHASONE SOD INJ 4 MG/ML VIAL ONE (14:41)
[2025-07-25] MEDS ORDERED: LIDOCAINE 2% 2 ML VIAL/AMP(20MG/ML) INFIL ONE (14:41)
[2025-07-25] MEDS ORDERED: PROPOFOL IV EMULSION 10 MG/ML 20 ML VIAL IV ONE (14:42)
[2025-07-25] MEDS ORDERED: GLYCOPYRROLATE 0.2 MG/ML VIAL ONE (14:42)
[2025-07-25] MEDS ORDERED: ROCURONIUM BROMIDE 10 MG/ML 5 ML VIAL IV ONE ×2 (14:42→17:54)
[2025-07-25] MEDS ORDERED: MIDAZOLAM HCL 1 MG/ML 2ML VIAL ONE (14:42)
[2025-07-25] MEDS ORDERED: SUGAMMADEX SODIUM 200 MG/2 ML VIAL IV ONE (14:45)
[2025-07-25 14:59] LABS: Pregnancy Test, Serum Negative (Negative)
--- NOTE | 2025-07-25 15:16 | History & Physical Bridge Note ---
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 During the fall she sustained a closed, traumatic, displaced comminuted fracture of her left tibia and fibular shafts. We did obtain a CT scan demonstrating no intra-articular extension. I had a long discussion with the patient regarding the nature of this injury. We discussed in great detail the pathoanatomy, pathophysiology and treatment options. I expressed to the patient that a tibial shaft fracture such as this is 1 for which I would recommend surgical management. I discussed with her that surgery would include open versus close reduction and internal fixation of the left tibia. We discussed the risks of the proposed surgery which include but are not limited to loss of life/limb, DVT/PE, incomplete relief of pain, need for additional surgery, infection, nonunion, malunion, hardware complication, hardware failure, hardware irritation. We discussed the alternatives which would be for nonoperative management. Nonoperative management would include serial casting and likely a longer period of time to be nonweightbearing. Nonoperative management carries with it a higher risk of nonunion and malunion. After thorough discussion of the risks, benefits, alternatives to surgical management, the patient is interested in pursuing operative care. She last ate a full breakfast this morning at 730. Will discuss with anesthesia and take the patient to the operating room as soon as an OR is available and anesthesia deems the patient safe. Postoperatively, the patient will be started on Lovenox for DVT prophylaxis. We have obtained vitamin D labs to begin repletion if necessary. Given the comminuted nature of this fracture, the patient will require period of time being nonweightbearing even postoperatively. I did discuss with her the potential for her to be discharged to a rehab facility. All of her questions were answered to her satisfaction. I did also discuss with her warning signs of compartment syndrome. She has no signs or symptoms consistent with compartment syndrome at this time and she will continue to monitor this postoperatively. Surgical plan open versus close reduction internal fixation left tibia, 4 compartment fasciotomy of indicated
[2025-07-25] MEDS ORDERED: KETAMINE HCL 10MG/ML SYR ONE (15:47)
[2025-07-25] MEDS ORDERED: ceFAZolin 330 MG/ML 1 GM VIAL ONE (17:29)
[2025-07-25] MEDS ORDERED: HYDROmorphone INJ 2 MG/ML SYR/VIAL ONE (17:53)
[2025-07-25] MEDS ORDERED: METOCLOPRAMIDE HCL INJ 5 MG/ML 2 ML VIAL IV PRN (20:19)
[2025-07-25] MEDS ORDERED: NALOXONE HCL 0.4 MG/1 ML VIAL/CARP IV PRN (20:19)
[2025-07-25] MEDS ORDERED: MAGNESIUM HYDROXIDE SUSP 30 ML UDC PO PRN (20:19)
[2025-07-25] MEDS ORDERED: NO NSAIDS SCH (20:30)
--- NOTE | 2025-07-25 20:37 | Anesthesiology Progress Note ---
Date of Service July 25, 2025 Anesthesia Post Procedure Vital Signs Vital Signs: Temp Pulse Pulse Pulse Resp BP BP 07/25/25 15:04 37.1 C 82 18 123/80 07/25/25 14:55 76 17 120/90 07/25/25 13:55 79 17 125/86 07/25/25 11:55 92 H 17 130/87 07/25/25 09:59 36.9 C 103 H 17 121/87 07/25/25 09:59 36.9 C 103 H 17 121/87 Pulse Ox O2 Del Method 07/25/25 15:04 97 Room Air 07/25/25 14:55 96 Room Air 07/25/25 13:55 98 Room Air 07/25/25 11:55 92 Room Air 07/25/25 09:59 99 Room Air 07/25/25 09:59 99 Room Air Pain Intensity Left Ankle: Pain Intensity: 2 Transfer of Care Handoff Completed per policy Notes Mental Status: alert / awake / arousable and participated in evaluation Patient Amnestic to Procedure: Yes Nausea / Vomiting: adequately controlled Pain: adequately controlled Airway Patency, RR, SpO2: stable & adequate BP & HR: stable & adequate Hydration State: stable & adequate Anesthetic Complications: no major complications apparent and Pt Satisfied with anesthetic care
--- NOTE | 2025-07-25 20:40 | Post Operative Brief Note ---
Immediate Post Op Note Date of Surgery July 25, 2025 Pre & Post Diagnosis Operation Date: 07/25/25 08:05 Pre-Op Diagnosis: Left Tibial Shaft Fracture Left fibular shaft fracture Post-Op Diagnosis: Left Tibial Shaft Fracture Left fibular shaft fracture I identified the patient and participated in the time-out.: Yes Procedure Operation Date: 07/25/25 08:05 Actual Procedures p Left Tibia Open Reduction and Internal Fixation; Physician Guided Fluoroscopy, Greater than 1 hour; Application of Negative Pressure Wound Therapy; Application of Below the Knee Splint(Left) - Epi Sandy DO 1. Open reduction intramedullary nailing left tibia shaft 2. Physician directed fluoroscopy greater than 1 hour 3. Application negative pressure wound therapy 4. Application left below-knee splint Surgeon Epi Sandy DO Photogrammetric Compilation Specialist None Estimated Blood Loss 150 Findings Consistent with Post-Op Diagnosis Drains Ford Catheter (A 16 Persian ford catheter was inserted by Yulisa Rothman RN, without difficulty, clear yellow urine obtained, output to be monitored by Anesthesia.) Complications none Disposition Disposition: Recovery Room Overlapping Procedure I was present for: the critical portions of procedure. (The entire surgical case)
--- NOTE | 2025-07-25 20:42 | Operative Report ---
Post Operative Report Pre & Post Diagnosis Operation Date: 07/25/25 08:05 Pre-Op Diagnosis: Left Tibial Shaft Fracture Left fibular shaft fracture Post-Op Diagnosis: Left Tibial Shaft Fracture Left fibular shaft fracture I identified the patient and participated in the time-out.: Yes Procedure Operation Date: 07/25/25 08:05 Actual Procedures p Left Tibia Open Reduction and Internal Fixation; Physician Guided Fluoroscopy, Greater than 1 hour; Application of Negative Pressure Wound Therapy; Application of Below the Knee Splint(Left) - Epi Sandy DO 1. Open reduction internal fixation with intramedullary nailing left tibial shaft fracture 2. Closed management left fibular shaft fracture 3. Physician directed fluoroscopy greater than 1 hour 4. Application negative pressure wound therapy 5. 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 During the fall she sustained a closed, traumatic, displaced comminuted fracture of her left tibia and fibular shafts. We did obtain a CT scan demonstrating no intra-articular extension. I had a long discussion with the patient regarding the nature of this injury. We discussed in great detail the pathoanatomy, pathophysiology and treatment options. I expressed to the patient that a tibial shaft fracture such as this is 1 for which I would recommend surgical management. I discussed with her that surgery would include open versus close reduction and internal fixation of the left tibia. We discussed the risks of the proposed surgery which include but are not limited to loss of life/limb, DVT/PE, incomplete relief of pain, need for additional surgery, infection, nonunion, malunion, hardware complication, hardware failure, hardware irritation, anterior knee pain, iatrogenic injury to bone/nerve/tendon/vessel/cartilage. We discussed the alternatives which would be for nonoperative management. Nonoperative management would include serial casting and likely a longer period of time to be nonweightbearing. Nonoperative management carries with it a higher risk of nonunion and malunion. After thorough discussion of the risks, benefits, alternatives to surgical management, the patient is interested in pursuing operative care. She last ate a full breakfast this morning at 730. Will discuss with anesthesia and take the patient to the operating room as soon as an OR is available and anesthesia deems the patient safe. Postoperatively, the patient will be started on Lovenox for DVT prophylaxis. We have obtained vitamin D labs to begin repletion if necessary. Given the comminuted nature of this fracture, the patient will require period of time being nonweightbearing even postoperatively. I did discuss with her the potential for her to be discharged to a rehab facility. All of her questions were answered to her satisfaction. I did also discuss with her warning signs of compartment syndrome. She has no signs or symptoms consistent with compartment syndrome at this time and she will continue to monitor this postoperatively. Surgical plan open versus close reduction internal fixation left tibia, 4 compartment fasciotomy if indicated Description of Procedure After informed consent was obtained, the patient was correctly identified in the preoperative holding suite, the operative site was marked with the surgeon's initials, the date of surgery, and the word yes. The patient was then taken to the operative suite. The department of anesthesia administered general anesthesia. The patient was transferred from the [facility] to the operative table. All bony prominences were well-padded. Briefing and timeout was performed. All implants were available and sterile at the time. BRIEFING AND DEBRIEFING: Pre and post operative briefing and debriefing was performed. Introductions were made, goals of the procedure were discussed, questions and concerns were addressed. The operative site markings were identified and appropriate. A time [id number] was performed, the patient's correct identity was confirmed and the correct operative sites were identified. The patients pre-operative antibiotic dosing and administration was confirmed along with other SCIP measures. The team was polled at the completion of the surgery and all team members were in agreement that the procedure was without complication, the counts are correct, the wound class was identified and suggestions for improvement were shared. Patient was positioned supine on the operative table with her leg on a bone foam ramp. A bump placed on the ipsilateral hip and the left lower extremity was cleansed with chlorhexidine scrub brush and then prepped and draped in standard sterile fashion using ChloraPrep. An SCD was placed on the right lower extrem ity bilateral upper extremities were placed on well-padded arm boards. The right lower extremity was placed on eggcrate foam padding and secured to the table. We began by bringing in an x-ray and evaluating the fracture pattern. During the period of time between her original x-rays and the beginning of the surgical case, the patient's comminution of her tibial shaft fracture became much more ev ident. We made the decision to proceed with an open reduction due to the significant comminution. We felt as if our best read would be anteromedially in order to establish length, alignment, rotation. We would make a direct medial approach over the tibial shaft fracture. We incised sharply through skin and dissected bluntly through subcutaneous tissue until we encountered the deep periosteal layer. This had been injured from the fracture and a rent in the periosteal layer was then turned into a flap anteriorly and posteriorly such that we could evaluate the entire fracture. We would use a series of multiple pointed reduction clamps in conjunction with traction and rotation on the lower extremity to achieve a provisional fracture reduction. 3 total clamps were used and we were satisfied with the reduction on both AP and lateral fluoroscopic films. Given the significant comminution, in order to prevent against fracture displacement during reaming and nail placement, we opted to place a 2.7 mm unicortical locking plate on the anteromedial aspect of the tibia. We would choose this from the Synthes set, drill through the guides and placed a total of 4 of the smallest unicortical locking screws available to us which were all [address] 2 screws in the largest proximal segment and 2 screws in the largest distal segment establishing our length alignment and rotation. This achieved a provisionally stabilized reduction. We then turned our attention towards placing the nail. We would make a 4 cm incision over the quadriceps tendon just superior to the patella dissect bluntly down through subcutaneous tissue until we encountered the quadriceps tendon. This was split longitudinally in line with its fibers in the mid aspect and intra-articular adhesions were released bluntly with a finger. We then introduced the suprapatellar starting jig and using AP and lateral fluoroscopic films we would obtain an appropriate start point just medial to the lateral tibial spine and just anterior to the articular surface. Once we are satisfied with our position, through the jig, we would introduce a starting guidewire. Then, we removed the targeting guide and through the protective trochar we would introduce the opening reamer. Then, we opened the long ball-tipped guidewire, placed a bend at the distal tip and would advance this in an antegrade fashion from proximal to distal. We would ensure that the nail ended in a center center position on perfect AP and lateral fluoroscopic films of the ankle. We checked this with multiplanar fluoroscopy. Then, we measured over the ball-tipped guidewire and selected a 360 mm nail. Then, sequentially, we reamed up starting with an 8.5 mm reamer advancing by 1/2 mm each to until we felt appropriate chatter. At this point we selected an appropriate sized nail which was 11 mm in diameter. We would use a pulse past technique at the fracture site to prevent displacement and we visually inspected the fracture during each sequential reaming to ensure no fracture displacement. Then, we would attach the Synthes 11 mm x 360 mm suprapatellar tibial nail to the insertion handle and we would advance this in an antegrade fashion checking the position of the nail and the fracture reduction on AP and lateral fluoroscopic planes throughout the entirety of impaction. This seated nicely and did not displace our fracture. We then turned our attention towards the distal interlocking screws. Using a perfect [place]iak technique we would place 2 medial to lateral 5.0 mm low-profile locking screws and we would then place a third screw anterior to posterior in order to lock the distal aspect of the nail. In order to place the anterior posterior screw we would localize the interlocking hole using fluoroscopy and then we will make a 3 cm incision over this area so that we could appropriately dissect visually down to the anterior cortex of the tibia. This protected the neurovascular bundle and this was protected the entire time. We then turned our attention proximally. We would drill through the guide and placed 2 proximal interlocking screws 1 in static position and 1 in the dynamic position. We then checked our final fluoroscopic views. We were satisfied with our reduction and stabilization so we began a thorough irrigation of all the wounds and a layered closure. Proximally, we would use interrupted #1 Vicryl sutures to repair the quadriceps tendon in a [id number]-drozl fashion. We repaired the peritenon with a running 3-0 Monocryl. The subcutaneous tissue was closed with 2-0 Vicryl suture and a running 3-0 Monocryl and skin glue were used for the skin. This wound was covered with Betadine soaked Adaptic, 4 x 4, Tegaderm. For the interlocking screws on the medial side, we would close these wounds with a buried 2-0 Vicryl and then a 3-0 nylon in a vertical mattress fashion. Quarter inch brown Steri-Strips placed between each suture, the tails were pulled through and these were then covered with Betadine soaked Adaptic, 4 x 4's, Tegaderm. For the distal anterior incision, we would repair the extensor retinaculum with a running 3-0 Monocryl and the subcutaneous tissue was closed with 2-0 Vicryl and the skin was closed with 3-0 nylon in vertical mattress fashion. For the medial open approach, we would close the periosteal layer with a running 3-0 Monocryl then the subcutaneous tissue was closed with a 2-0 Vicryl and the skin was closed with 3 oh nylons in a vertical mattress fashion. The medial distal interlocking holes were closed with a buried 2-0 Vicryl and a 3-0 nylon in vertical mattress fashion. Quarter inch brown Steri-Strips were placed between all suture, the tails were pulled through and all the distal incisions were covered with Betadine soaked Adaptic and a ree negative pressure wound therapy in order to wick moisture away from the skin. We would then wrapped the leg with sterile Webril, and placed a well-padded trilaminar AO trauma below- knee splint on the leg with the ankle held in neutral dorsiflexion with the splint cured. The patient tolerated this procedure well and was transferred to the PACU in stable condition. Prior to transportation to PACU, all counts were correct and a briefing was performed at the end of the case. Physician-directed fluoroscopy for greater than one hour was performed by myself to verify fracture alignment and the safe placement of all internal fixation. The final images saved to PACs showed views demonstrating satisfactory alignment of the fracture and stable internal fixation. Implant verification was performed by myself by reading and confirming the implant information on the packaging with the team before the sterile implants were opened. I was present for the entire procedure. Plan: Weight bearing status: Nonweightbearing right lower extremity due to the comminution Wound care: Keep dressings clean and dry Range of motion: As tolerated of hip and knee and toes VTE Prophylaxis: Lovenox twice daily 30 mg Antibiotics: Perioperative Ancef Pain Control: Multimodal avoiding NSAIDs Vitamin D Replacement: Labs pending Discharge Plan: Pending PT/OT Follow Up: With myself in 2 weeks I attest to the content of the Intraoperative Record and any orders documented therein. Any exceptions are noted below.
[2025-07-25] MEDS: HYDROmorphone INJ 1 MG/ML SYRINGE IV PRN (21:59)
[2025-07-25] MEDS: DOCUSATE SODIUM 100 MG CAP PO SCH (21:59)
[2025-07-25] MEDS: SENNA 8.6 MG TAB PO SCH (21:59)
[2025-07-25] MEDS: SODIUM CHLORIDE 0.9% 1,000 ML IV SCH (22:18)
--- NOTE | 2025-07-25 22:24 | XRay Report ---
Exam(s): XR LEFT TIB/FIB, 2 views EXAM: XR Left Tibia and Fibula, 2 Views CLINICAL HISTORY: Reason for exam: postop. TECHNIQUE: Frontal and lateral views of the left tibia and fibula. COMPARISON: No relevant prior studies available. FINDINGS: Bones/joints: z status post tibial nailing with distal and proximal interlocking screws. Plate and screw construct also present in the distal 3rd of the tibia. Anatomic alignment of the tibial fracture. Near anatomic alignment of the fracture distal fibular shaft fracture with a butterfly fragment. Splint material obscures fine osseous detail. Soft tissues: Unremarkable. No radiopaque foreign body. IMPRESSION: 1. Status post tibial ORIF without hardware complication. 2. Near anatomic alignment of the distal fibular shaft fracture with a butterfly fragment. Electronically signed by: Mateusz Matta MD 07/25/25 22:23 PM
[2025-07-25] MEDS ORDERED: Nursing to Pharmacy Communication SCH (22:30)
--- NOTE | 2025-07-25 22:44 | Hospitalist Consultation ---
Date of Consultation July 25, 2025 Assessment & Plan (1) Closed fracture of left fibula: (2) Closed left tibial fracture: (3) Vitamin D deficiency: Plan 35 year old female POD#0 s/p ORIF of left tibial fracture/closed management of left fibular fracture - hospitalist service consulted for med co-management: #Left tibia/fibula fracture: POD#0 s/p ORIF of left tibial fracture/closed management of left fibular fracture Perioperative abx and pain control per orthopedics PT/OT eval and treat as appropriate #Vitamin D insufficiency: Vitamin D lvl 21 - start daily PO supplementation #Leukocytosis: Likely reactive, no evidence for acute infectious process VTE ppx: Lovenox Supervising Physician Co-Signing Physician Notes Attending addendum: I have physically seen this patient, have supervised the medical residents activities, and agree with the H&P unless as otherwise noted. Assessment and Plan: The patient is a 35-year-old female with past medical history including vitamin D deficiency. Medical consult is placed by orthopedic surgery primary service, after patient underwent ORIF of left tibial fracture/closed management of left fibula fracture. Seen postoperatively, she is medically stable. Left tibia/fibula fracture- Status post ORIF left tibial fracture/closed management of left fibula fracture Antibiotics and pain control per orthopedic surgery PT/OT per orthopedic surgery Vitamin D insufficiency- Starting daily p.o. supplementation Leukocytosis- Likely reactive, no signs of active infection, but should be followed closely Anemia Hemoglobin 12.1 Follow-up in AM. DVT prophylaxis per primary service, Lovenox History of Present Illness Attending Physician: Daryl Sandy MD History of Present Illness 35 year old female POD#0 s/p ORIF of left tibial fracture/closed management of left fibular fracture - hospitalist service consulted for med co-management. Patient assessed at bedside in post-op period, resting comfortably, still somewhat sedated from anesthesia. She states that pain is adequately controlled. Denies chest pain, dyspnea, abdominal pain/N/V, fever/chills. No significant PMHx, no routine medications. Allergies Allergy/AdvReac Type Severity Reaction Status Date / Time bee venom protein (honey bee) Allergy Verified 03/21/25 08:54 ciprofloxacin [From Cipro] AdvReac Hives Verified 03/21/25 08:54 Home Medications Medication Instructions Recorded Confirmed Type docusate sodium 100 mg capsule 100 mg PO BID PRN constipation #14 07/27/25 Rx caps enoxaparin 30 mg/0.3 mL 30 mg (0.3 mL) subcut Q12H 45 days 07/27/25 Rx subcutaneous syringe (Lovenox) #27 mL ergocalciferol (vitamin D2) 1,250 See Rx Instructions .Route 07/27/25 Rx mcg (50,000 unit) capsule .COMPLEX 12 weeks #12 caps oxycodone 5 mg tablet 5 mg PO 4XD PRN severe pain 10 07/27/25 Rx days #30 tabs oxycodone 5 mg tablet 5 mg PO Q6H PRN pain 10 days #30 07/27/25 Rx tabs Patient History Medical History (Updated 07/26/25 @ 03:34 by Neal Canela DO) Encounter for pre-operative examination Fracture of tibial shaft, left, closed Surgical History S/P wisdom tooth extraction S/P breast biopsy Family History Grandfather (Paternal) Diabetes Grandmother (Paternal) Breast cancer Mother No problems noted. Social History Smoking Status: Former smoker Tobacco Type: Declines Age Started Using Tobacco: 16; Age Quit Using Tobacco: 33; Do You Dip or Chew Tobacco: No; Hx Alcohol Use: No Hx Substance Use: No Preferred Language: Danish Communication Ability: Effective Senior Systems Engineer Required: No Beliefs That Will Affect Care: None marital status: marital status details: Dylan (34) [phone] Current Living Situation: Spouse Current Living Situation Comment: lives with spouse, 1 dog. current occupational status: employed current occupation: Grad student How many Children do You have: 1 Feels Safe at Home: Yes Childhood Exposure to Second-Hand Smoke: Yes Diet: regular caffeine: Yes Dental Care, Regularly: Yes Physical Activity Frequency: Daily Seatbelt Use: always Sunscreen Use: Yes Assistive Devices: None Review of Systems Review of Systems: as per HPI Physical Exam Physical Exam: Constitutional: no acute distress HEENT: NCAT, no conjunctival injection CV: RRR, extremities well-perfused Resp: lungs clear to auscultation bilaterally, no increased work of breathing GI: nondistended MSK: no gross deformities Skin: warm, dry, no rash appreciated Neuro: alert, oriented, no focal neurologic deficit appreciated Results & Data Results & Data Vital Signs (Past 12 Hours) Vital Signs Temp Pulse Pulse Pulse Pulse Resp BP 07/25/25 22:13 37 C 92 H 16 07/25/25 21:36 07/25/25 21:35 36.8 C 85 18 07/25/25 21:05 36.9 C 82 18 07/25/25 20:50 37.3 C 82 13 07/25/25 20:40 93 H 18 07/25/25 20:30 97 H 12 07/25/25 20:20 37.4 C 101 H 16 07/25/25 15:04 37.1 C 82 18 07/25/25 14:55 76 17 120/90 07/25/25 13:55 79 17 07/25/25 11:55 92 H 17 BP Pulse Ox O2 Del Method O2 Flow Rate 07/25/25 22:13 112/74 95 Room Air 07/25/25 21:36 Room Air 07/25/25 21:35 118/81 93 Room Air 07/25/25 21:05 121/81 93 Room Air 07/25/25 20:50 129/87 93 Room Air 07/25/25 20:40 116/84 99 Oxymask 7 07/25/25 20:30 135/87 100 Oxymask 7 07/25/25 20:20 122/78 95 Oxymask 7 07/25/25 15:04 123/80 97 Room Air 07/25/25 14:55 96 Room Air 07/25/25 13:55 125/86 98 Room Air 07/25/25 11:55 130/87 92 Room Air Resident Activity Tracking Resident Involvement: Resident Care Provided Care Provided: Adult Hospital Medicine (1) Closed fracture of left fibula Encounter type: initial encounter (2) Closed left tibial fracture Encounter type: initial encounter
[2025-07-26 06:16] LABS: Hematocrit (blood only) 30.0 % (37.0-47.0); Hemoglobin 10.0 g/dL (12.0-16.0); Mean Corpuscular Hemoglobin 28.4 pg (25.0-34.0); Mean Corpuscular Volume 85.2 fL (80.0-100.0); Platelet Count 222 K/uL (130-400); RDW Standard Deviation 40.7 fL (36.4-46.3); Red Blood Count 3.52 M/uL (4.20-5.40); White Blood Count 10.64 K/ul (4.8-10.8)
[2025-07-26 06:31] LABS: Anion Gap 8.0 (3-11); Blood Urea Nitrogen 13.0 mg/dl (6-23); Calcium 7.8 mg/dl (8.6-10.3); Carbon Dioxide 23.0 mmol/L (21-32); Chloride 106.0 mmol/L (98-107); Creatinine Clr Calc Pharmacy 147.3 ml/min; Glucose 128.0 mg/dl (70-99(Fasting)); Potassium 3.9 mmol/L (3.5-5.1); Sodium 137.0 mmol/L (136-145)
[2025-07-26] MEDS: MULTIVITAMIN TAB PO SCH (08:56)
[2025-07-26] MEDS: ENOXAPARIN INJ 30 MG/0.3 ML SYR SQ SCH (08:56)
[2025-07-26] MEDS: CHOLECALCIFEROL 25 MCG (1000 UNITS) TAB PO SCH (08:57)
[2025-07-26] MEDS: ONDANSETRON INJ 2 MG/ML 2 ML VIAL IV PRN (10:40)
--- NOTE | 2025-07-26 11:04 | Fluoroscopy Report ---
FL tibia/fibula LT 2V CLINICAL HISTORY: LEFT TIBIAL NAIL COMPARISON STUDY: 07/25/2025 FLUOROSCOPY TIME: 5 minutes 52 seconds FLUOROSCOPY IMAGES: 22 EXPOSURE DOSE: 23 mGy FINDINGS: Fluoroscopy was provided for placement of tibial nail. IMPRESSION: Intraoperative fluoroscopy. ACT 112: Negative or not required by law. Electronically signed by: Taye Prince M.D. 07/26/2025 11:02 AM
--- NOTE | 2025-07-26 11:22 | Orthopedic Progress Note ---
Date of Service July 26, 2025 Assessment & Plan (1) Closed left tibial fracture: (2) Vitamin D deficiency: Plan 35-year-old female postoperative day #1 status post open reduction and intramedullary nailing of the left tibia. Patient overall is doing well. Her pain is controlled with oral medications. She has worked with PT and believes that she can use more help with them tomorrow. I think is reasonable for her to stay at least 1 more night. She is nonweightbearing on left lower extremity Lovenox for DVT prophylaxis Continue PT/OT Discharge recommendations per PT for rehab versus home Admission and Anticipated Discharge Date Admission Date: July 25, 2025 Subjective 35-year-old female postoperative day #1 status post open reduction and intramedullary fixation of left tibia. Patient resting comfortably in bed. Pain controlled with oral medications. She has worked with PT. Is requesting to stay at least 1 additional night. Review of Systems Review of Systems: All systems reviewed & are unremarkable except as noted in HPI & below Physical Exam Physical Exam: Foot is warm and well-perfused. Patient demonstrates intact EHL and FHL function. No pain with passive range of motion of the toes. Splint is clean dry and intact. Results & Data Vital Signs (Past 12 Hours) Vital Signs Temp Pulse Resp BP Pulse Ox O2 Del Method 07/26/25 11:10 36.7 C 98 H 16 124/87 99 Room Air 07/26/25 07:11 37.1 C 91 H 16 111/72 96 Room Air Diagnostic Findings Postoperative imaging review demonstrates stable fixation of tibia without evidence of hardware complication or failure. (1) Closed left tibial fracture Encounter type: initial encounter
--- NOTE | 2025-07-26 15:33 | Hospitalist Progress Note ---
Date of Service July 26, 2025 Assessment & Plan (1) Closed fracture of left fibula: (2) Vitamin D deficiency: Plan 5 year old female with no significant PMHx s/p ORIF of left tibial fracture/closed management of left fibular fracture - hospitalist service consulted for med co-management: #Left tibia/fibula fracture: s/p ORIF of left tibial fracture/closed management of left fibular fracture with Dr. Sanyd 07/25 abx / dispo/ dvt proh per primary team EBL 150 - hgb drop to 10 - acute blood loss anemia vs dilational rx signed for walker #Vitamin D insufficiency: Vitamin D lvl 21 - start daily PO supplementation #Leukocytosis: Likely reactive, no evidence for acute infectious process Thank you for allowing us to participate in the care of this patient, please reach out with any questions or concerns. Hospital medicine will sign off. Admission and Anticipated Discharge Date Admission Date: July 25, 2025 Subjective patient seen lying in bed - mother present at bedside pain has been managable not moving around super great yet Review of Systems Review of Systems: All systems reviewed & are unremarkable except as noted in Subjective Physical Exam Physical Exam: General: NAD, vitals as above, sitting on the side of bed Pulm: breathing unlabored CV: well perfused cast in place to left foot, able to move toes Results & Data Results & Data Vital Signs (Past 12 Hours) Vital Signs Temp Pulse Resp BP Pulse Ox O2 Del Method 07/26/25 13:56 97.9 F 97 H 16 114/77 98 Room Air 07/26/25 11:10 98.1 F 98 H 16 124/87 99 Room Air 07/26/25 07:11 98.8 F 91 H 16 111/72 96 Room Air Laboratory Results cbc and chemistry reviewed PG Care Time/CCT Total # of Minutes Spent Total Time Spent with Patient: Total time spent is greater than 50% in coordination of care (as documented) at patient's floor/unit and/or counseling patient: Coding Level of Care Code 65630 SUB INP/OBS CARE 2/35MIN Diagnoses Closed fracture of left fibula S82.402A Encounter type: initial encounter Vitamin D deficiency E55.9 (1) Closed fracture of left fibula Encounter type: initial encounter
--- NOTE | 2025-07-27 07:11 | Orthopedic Progress Note ---
Date of Service July 27, 2025 Assessment & Plan Admission and Anticipated Discharge Date Admission Date: July 25, 2025 Orthopedic Progress Note Tertiary Survey: General: AAOx3 HEENT: NCAT Thorax: No Pain Cardiopulmonary: nonlabored breathing, regular rate on monitor. Abdomen: No Pain/Tenderness: Spine: nontender throughout MSK: - RUE: Nontender to palpation throughout. Demonstrates intact sensation C5-T1. No lacerations or abrasions. Nonpainful range of motion of shoulder, elbow, wrist. Radial pulse intact. Extremity warm and well-perfused. - RLE: Nontender to palpation throughout. Demonstrates intact sensation L2-S1. Full range of motion of hip, knee, ankle without pain. Foot warm and well- perfused. - LUE: Nontender to palpation throughout. Demonstrates intact sensation C5-T1. No lacerations or abrasions. Nonpainful range of motion of shoulder, elbow, wrist. Radial pulse intact. Extremity warm and well-perfused. - LLE: Below-knee splint in place. Dressings clean dry and intact. Intact sensation in lower extremity nontender to palpation at knee. Mental status Adequate for Full Exam: Yes New Diagnoses Identified: none New Consults Required: none
--- NOTE | 2025-07-27 08:01 | Orthopedic Progress Note ---
Date of Service July 27, 2025 Assessment & Plan (1) Closed left tibial fracture: (2) Vitamin D deficiency: Plan 35-year-old female postoperative day #2 status post open reduction and intramedullary nailing of the left tibia. Patient overall is doing well. Her pain is controlled with oral medications. She has worked with PT she has another session pending today. Disposition per PT recommendations She is nonweightbearing on left lower extremity Lovenox for DVT prophylaxis Continue PT/OT Discharge recommendations per PT for rehab versus home Admission and Anticipated Discharge Date Admission Date: July 25, 2025 Subjective Postoperative day 2 status post open reduction internal fixation of left tibia. Patient's pain improving. Controlled on oral medications Review of Systems Review of Systems: All systems reviewed & are unremarkable except as noted in HPI & below Physical Exam Physical Exam: Foot is warm and well-perfused. Patient demonstrates intact EHL and FHL function. No pain with passive range of motion of the toes. Splint is clean dry and intact. Results & Data Vital Signs (Past 12 Hours) Vital Signs Temp Pulse Resp BP Pulse Ox O2 Del Method 07/26/25 23:36 Room Air 07/26/25 22:00 37.3 C 92 H 16 108/72 97 Room Air (1) Closed left tibial fracture Encounter type: initial encounter
[2025-07-27 08:30] VITALS: BP 142/90; PULSE 104; RESP 18; TEMP 98.2; O2SAT 93
--- NOTE | 2025-07-28 21:01 | Billing Data ---
Date of Service July 28, 2025 Coding Level of Care Code 77958 IN/OBS CONSULT LVL 3,45M
== END 2025-07-27 17:48 | disposition home or self-care (01) | DRG 493 ==
LOC: ED 09:52 → OR 14:55 → ED 14:55 → 3E 20:19 → SUATTDRO 20:19